=== PATIENT | female | born 1995 | race Hispanic/Latino ===

== ENCOUNTER 2021-06-18 05:53 | Emergency (ER) | payer OTHER, BC ==
[2021-06-18 06:17] LABS: #Basophils 0.2 thou/uL (0.0-0.2); #Eosinphils 0.2 thou/uL (0.0-0.7); #Lymphocytes 3.2 thou/uL (1.20-3.40); #Monocytes 0.5 thou/uL (0.11-0.59); #Neutrophils 4.5 thou/uL (1.40-6.50); %Basophils 1.8 % (0.0-1.0); %Eosinophils 2.6 % (0.0-10.0); %Lymphocytes 37.3 % (21.0-51.0); %Monocytes 6.1 % (0.0-10.0); %Neutrophils 52.2 % (42.0-75.0); Hemoglobin 10.3 g/dL (12.0-16.0); Mean Corpuscular HGB CONC 30.9 g/dL (32.0-36.0); Mean Corpuscular Hemoglobin 25.7 pg (27.0-31.0); Mean Platelet Volume 10.1 fL (7.4-10.4); Platelet Count 323 thou/uL (130-400); RBC Distribution Width 13.9 % (11.5-14.5); Red Blood Cell (RBC) Count 4.03 mill/uL (4.20-5.40); White Blood Cell (WBC) Count 8.7 thou/uL (4.8-10.8)
[2021-06-18 06:20] LABS: BHCG - Serum Negative (NEGATIVE)
[2021-06-18 06:21] LABS: Pregs Control Bar Appear? YES (CONTROL BAR)
[2021-06-18] MEDS ORDERED: Fentanyl 100 MCG/2 ML VIAL ONE (06:30)
[2021-06-18] MEDS ORDERED: Sodium Chloride 0.9% 1,000 ML ONE (06:30)
[2021-06-18 06:32] LABS: ALT (SGPT) 128 U/L (8-55); AST (SGOT) 100 U/L (5-34); Albumin 4.8 g/dL (3.5-5.0); Alcohol 200 mg/dL (Less than 10); Alkaline Phosphatase 80 U/L (40-110); Anion Gap 18 mmol/L (10-20); BUN (Urea Nitrogen) 7 mg/dL (7.0-18.7); Bilirubin, Total 0.4 mg/dL (0.2-1.2); Calc. Creatinine Clearance 0 mL/min (70-130); Calcium 9.6 mg/dL (7.8-10.44); Carbon Dioxide 17 mmol/L (22-29); Chloride 112 mmol/L (98-107); Globulin 3.6 g/dL (2.4-3.5); Glucose 169 mg/dL (70-105); Potassium 3.4 mmol/L (3.5-5.1); Protein, Total 8.4 g/dL (6.0-8.3); Sodium 144 mmol/L (136-145)
[2021-06-18] MEDS ORDERED: Bacitracin 1 PK ONE (08:06)
[2021-06-18] MEDS ORDERED: Morphine 4 MG/ML VIAL ONE (08:11)
== END 2021-06-18 08:45 | disposition home or self-care (01) ==
LOC: NAV ERS 05:53
DX: S87.82XA Crushing injury of left lower leg, initial encounter (principal); S83.92XA Sprain of unspecified site of left knee, initial encounter; V89.2XXA Person injured in unspecified motor-vehicle accident, traffic, initial encounter
CPT/HCPCS: 70450; 72125; 80053; 80307; 82550; 84703; 85025; 96374; 96375; J2270; J3010; J7050